=== PATIENT | male | born 1975 | race Caucasian/White ===

== ENCOUNTER 2018-10-30 20:29 | Inpatient (IN) | payer SELFPAY ==
[~2018-10-30] VITALS: Ht 154.9 cm; Wt 121.5 kg
[2018-10-30 21:21] LABS: BASOPHIL % 0.5 % (0-2); PLATELET COUNT 199 x10^3mcL (130-400); RED CELL DISTRIBUTION WIDTH 14.1 % (11.5-14.5)
[2018-10-30 21:32] LABS: CALCIUM 11.5 mg/dL (8.5-10.1); CREATININE SERUM 2.7 mg/dL (0.7-1.3); POTASSIUM SERUM 4.9 mmol/L (3.5-5.1)
[2018-10-30 21:35] LABS: ALBUMIN 4.1 g/dL (3.4-5.0); BILIRUBIN TOTAL 1.3 mg/dL (0.20-1.00); TOTAL PROTEIN, SERUM 7.6 g/dL (6.4-8.2)
[2018-10-30 23:02] LABS: UA SPECIFIC GRAVITY <=1.005 (1.005-1.035); microscopic required? YES; urine erythrocyte 1+ (NEGATIVE)
[2018-10-30 23:25] LABS: AMPHETAMINE QUAL UR NONE DETECTED (See below)
[2018-10-30 23:55] VITALS: BP 151/64
[2018-10-31 02:07] LABS: CALCIUM 10.2 mg/dL (8.5-10.1); CARBON DIOXIDE 33.9 mmol/L (21-32); CREATININE SERUM 3.2 mg/dL (0.7-1.3); POTASSIUM SERUM 4.1 mmol/L (3.5-5.1)
[2018-10-31 02:11] LABS: MAGNESIUM 3.8 mg/dL (1.8-2.4); PHOSPHOROUS 6.7 mg/dL (2.5-4.9)
[2018-10-31 02:12] LABS: CHOLESTEROL/HDL RATIO 5.9
[2018-10-31 03:16] VITALS: BP 123/85
[2018-10-31 05:55] LABS: BASOPHIL % 0.2 % (0-2); PLATELET COUNT 177 x10^3mcL (130-400); RED CELL DISTRIBUTION WIDTH 13.8 % (11.5-14.5)
[2018-10-31 06:09] LABS: CALCIUM 9.9 mg/dL (8.5-10.1); CARBON DIOXIDE 35.4 mmol/L (21-32); CREATININE SERUM 2.8 mg/dL (0.7-1.3); MAGNESIUM 3.8 mg/dL (1.8-2.4); POTASSIUM SERUM 3.9 mmol/L (3.5-5.1)
[2018-10-31 07:30] VITALS: BP 111/67
[2018-10-31 08:05] LABS: CALCIUM 10.1 mg/dL (8.5-10.1); CARBON DIOXIDE 34.2 mmol/L (21-32); CREATININE SERUM 2.5 mg/dL (0.7-1.3); POTASSIUM SERUM 4.4 mmol/L (3.5-5.1)
[2018-10-31 08:42] VITALS: Ht 154.9 cm; Wt 121.5 kg
[2018-10-31 09:34] LABS: CALCIUM 10.1 mg/dL (8.5-10.1); CARBON DIOXIDE 38.8 mmol/L (21-32); CREATININE SERUM 2.5 mg/dL (0.7-1.3); POTASSIUM SERUM 4.1 mmol/L (3.5-5.1)
[2018-10-31 11:31] VITALS: BP 133/88
[2018-10-31 13:00] LABS: CALCIUM 9.6 mg/dL (8.5-10.1); CARBON DIOXIDE 32.4 mmol/L (21-32); CREATININE SERUM 2.5 mg/dL (0.7-1.3); POTASSIUM SERUM 3.7 mmol/L (3.5-5.1)
[2018-10-31 18:12] LABS: CALCIUM 9.4 mg/dL (8.5-10.1); CARBON DIOXIDE 28.8 mmol/L (21-32); POTASSIUM SERUM 4.7 mmol/L (3.5-5.1)
[2018-10-31 20:47] VITALS: BP 120/62
[2018-11-01 06:14] VITALS: BP 136/93
[2018-11-01 06:53] LABS: BASOPHIL % 0.3 % (0-2); RED CELL DISTRIBUTION WIDTH 13.4 % (11.5-14.5)
[2018-11-01 07:09] LABS: CARBON DIOXIDE 26.9 mmol/L (21-32); CREATININE SERUM 3.9 mg/dL (0.7-1.3); MAGNESIUM 2.9 mg/dL (1.8-2.4); PHOSPHOROUS 4.6 mg/dL (2.5-4.9); POTASSIUM SERUM 4.8 mmol/L (3.5-5.1)
[2018-11-01 08:35] LABS: PLATELET COUNT 119 x10^3mcL (130-400)
[2018-11-01 09:41] VITALS: BP 120/63
[2018-11-01 13:37] VITALS: BP 127/76
[2018-11-01 16:40] VITALS: BP 136/74
[2018-11-01 17:19] LABS: CALCIUM 8.7 mg/dL (8.5-10.1); CARBON DIOXIDE 25.9 mmol/L (21-32); CREATININE SERUM 3.1 mg/dL (0.7-1.3); POTASSIUM SERUM 4.1 mmol/L (3.5-5.1)
[2018-11-01 21:08] VITALS: BP 128/71
[2018-11-01 23:32] VITALS: BP 126/63
[2018-11-02 05:28] VITALS: BP 143/80
[2018-11-02 08:21] LABS: BASOPHIL % 0.3 % (0-2); RED CELL DISTRIBUTION WIDTH 13.2 % (11.5-14.5)
[2018-11-02 08:30] LABS: PLATELET COUNT 100 x10^3mcL (130-400)
[2018-11-02 08:52] LABS: CALCIUM 8.7 mg/dL (8.5-10.1); CARBON DIOXIDE 28.6 mmol/L (21-32); CREATININE SERUM 2.1 mg/dL (0.7-1.3); MAGNESIUM 2.5 mg/dL (1.8-2.4); PHOSPHOROUS 3.1 mg/dL (2.5-4.9); POTASSIUM SERUM 4.3 mmol/L (3.5-5.1)
[2018-11-02 09:44] VITALS: BP 121/86
[2018-11-02 12:25] VITALS: BP 145/89
[2018-11-02 17:29] VITALS: BP 146/92
[2018-11-02 20:55] VITALS: BP 149/99
[2018-11-03 06:01] VITALS: BP 130/64
[2018-11-03 06:42] LABS: CALCIUM 8.5 mg/dL (8.5-10.1); CARBON DIOXIDE 24.4 mmol/L (21-32); CREATININE SERUM 1.4 mg/dL (0.7-1.3); MAGNESIUM 1.9 mg/dL (1.8-2.4); PHOSPHOROUS 2.7 mg/dL (2.5-4.9); POTASSIUM SERUM 4.3 mmol/L (3.5-5.1)
[2018-11-03 06:55] LABS: BASOPHIL % 0.3 % (0-2); PLATELET COUNT 94 x10^3mcL (130-400); RED CELL DISTRIBUTION WIDTH 12.9 % (11.5-14.5)
[2018-11-03 09:10] VITALS: BP 141/76
[2018-11-03 12:47] VITALS: BP 128/90
[2018-11-03 18:00] VITALS: BP 143/95
[2018-11-03 20:45] VITALS: BP 135/78
[2018-11-04 05:09] VITALS: BP 129/85
[2018-11-04 06:25] LABS: BASOPHIL % 0.5 % (0-2); RED CELL DISTRIBUTION WIDTH 12.7 % (11.5-14.5)
[2018-11-04 06:37] LABS: CALCIUM 8.1 mg/dL (8.5-10.1); CARBON DIOXIDE 28.4 mmol/L (21-32); CHLORIDE SERUM 113 mmol/L (98-107); CREATININE SERUM 1.2 mg/dL (0.7-1.3); GFR1 > 60 mL/min; GLUCOSE SERUM 206 mg/dL (74-106); MAGNESIUM 1.9 mg/dL (1.8-2.4); PHOSPHOROUS 2.2 mg/dL (2.5-4.9); PLATELET COUNT 87 x10^3mcL (130-400); POTASSIUM SERUM 3.8 mmol/L (3.5-5.1); SODIUM SERUM 147 mmol/L (136-145)
[2018-11-04 09:30] VITALS: BP 135/86
[2018-11-04 13:13] VITALS: BP 134/97
[2018-11-04] MEDS ORDERED: METFORMIN HCL1000 MG PO (14:22)
[2018-11-04] MEDS ORDERED: LANTI SQ (14:22)
== END 2018-11-04 16:15 | disposition home or self-care (01) | DRG 637 ==
LOC: ED 20:29 → IC 22:52 → DU 10-31 15:59
PROVIDERS: Emergency Medicine; ADMIT Family Medicine
DX: E11.10 Type 2 diabetes mellitus with ketoacidosis without coma (principal); I21.4 Non-ST elevation (NSTEMI) myocardial infarction; N17.0 Acute kidney failure with tubular necrosis; E87.2 Acidosis; E87.0 Hyperosmolality and hypernatremia; Z68.43 Body mass index [BMI] 50.0-59.9, adult; E11.00 Type 2 diabetes mellitus with hyperosmolarity without nonketotic hyperglycemic-hyperosmolar coma (NKHHC); E11.65 Type 2 diabetes mellitus with hyperglycemia; E86.0 Dehydration; E83.39 Other disorders of phosphorus metabolism; R00.1 Bradycardia, unspecified; I25.5 Ischemic cardiomyopathy; E78.5 Hyperlipidemia, unspecified; E83.41 Hypermagnesemia; E66.01 Morbid (severe) obesity due to excess calories; Z91.19 Patient's noncompliance with other medical treatment and regimen
CPT/HCPCS: 82962; 83880; J1815; J1885; J7030; Q0092